=== PATIENT | female | born 1990 | race Caucasian/White ===

== ENCOUNTER 2017-10-15 18:15 | Inpatient (IN) | payer OTHER ==
[~2017-10-15] VITALS: Ht 167.6 cm; Wt 75.7 kg
[~2017-10-15 18:15] MED LIST: PREN1TAB22 PO
[2017-10-15] MEDS ORDERED: RINGERS SOLUTION,LACTATED 1,000 ML IV PRN (18:20)
[2017-10-15] MEDS ORDERED: METOCLOPRAMIDE HCL 5 MG/ML 2 ML VIAL IVP PRN (18:30)
[2017-10-15] MEDS ORDERED: CITRIC ACID/SODIUM CITRATE 30 ML SOLUTION UDCUP PO PRN (18:30)
[2017-10-15 18:59] LABS: BASOPHILS % (AUTO) 0.5 % (0.0-2.0); EOSINOPHILS % (AUTO) 0.6 % (1.0-6.0); HEMOGLOBIN 11.7 g/dL (12.0-16.0); LYMPHOCYTES # (AUTO) 2.2 K/uL (1.0-4.8); MEAN CORPUSCULAR HEMOGLOBIN 30.1 pg (26.0-34.0); MEAN CORPUSCULAR HGB CONC 34.5 G/dL (31.0-37.0); MEAN CORPUSCULAR VOLUME 87 fL (80-100); MONOCYTES # (AUTO) 0.8 K/uL (0.1-1.0); MONOCYTES % (AUTO) 5.3 % (2.0-9.0); NEUTROPHILS # (AUTO) 11.5 K/uL (1.8-7.7); NEUTROPHILS % (AUTO) 78.6 % (40.0-70.0); PLATELET COUNT (AUTO) 159 K/uL (150-450); RED CELL DISTRIBUTION WIDTH 14.5 % (11.5-14.5)
[2017-10-15] MEDS ORDERED: DINOPROSTONE 10 MG VAGINAL SUPPOSITORY VG ONE (19:00)
[2017-10-15 19:05] VITALS: BP 121/61
[2017-10-15] MEDS: RINGERS SOLUTION,LACTATED 1,000 ML IV SCH (20:07)
[2017-10-15] MEDS: OXYGEN THERAPY IH SCH (21:44)
[2017-10-16] MEDS: RINGERS SOLUTION,LACTATED 1,000 ML IV SCH ×2 (03:42→09:54)
[2017-10-16] MEDS ORDERED: OXYTOCIN 30 UNITS/LACT RINGERS 500 ML IV PRN (08:12)
[2017-10-16] MEDS: FentaNYL CITRATE-PF 100 MCG/2 ML VIAL IVP PRN ×4 (08:39→09:47)
[2017-10-16] MEDS: OXYGEN THERAPY IH SCH ×2 (08:42→20:03)
[2017-10-16] MEDS ORDERED: LIDOCAINE HCL/PF 2% 5 ML VIAL ONE (09:54)
[2017-10-16] MEDS ORDERED: ROPIVACAINE HCL/PF 0.2% 100 ML ED PRN (10:25)
[2017-10-16] MEDS ORDERED: DiphenhydrAMINE HCL 50 MG/ML VIAL IVP PRN (10:30)
[2017-10-16] MEDS ORDERED: ONDANSETRON HCL 4 MG/2 ML VIAL IVP PRN (10:30)
[2017-10-16] MEDS ORDERED: NALBUPHINE HCL 10 MG/ML VIAL IVP PRN (10:30)
[2017-10-16] MEDS ORDERED: OXYTOCIN 30 UNITS/LACT RINGERS 500 ML IV ONE (11:50)
[2017-10-16] MEDS ORDERED: OxyCODONE HCL/ACETAMINOPHEN 5-325 MG TABLET PO PRN ×2 (12:00)
[2017-10-16] MEDS ORDERED: LIDOCAINE HCL/PF 1% 30 ML VIAL INJ PRN (12:00)
[2017-10-16] MEDS ORDERED: BENZOCAINE 20%/MENTHOL 56 GM SPRAY CANISTER TP PRN (12:00)
[2017-10-16] MEDS ORDERED: GLYCERIN/WITCH HAZEL LEAF 40 PADS JAR TP PRN (12:00)
[2017-10-16] MEDS ORDERED: LANOLIN 7 GM OINTMENT TP PRN (12:00)
[2017-10-16] MEDS: IBUPROFEN 800 MG TABLET PO PRN (16:29)
[2017-10-16] MEDS: MAGNESIUM HYDROXIDE SUSPENSION 30 ML UDCUP PO PRN (21:12)
[2017-10-17] MEDS: IBUPROFEN 800 MG TABLET PO PRN (04:37)
[2017-10-17 06:37] LABS: BASOPHILS % (AUTO) 0.1 % (0.0-2.0); EOSINOPHILS % (AUTO) 0.6 % (1.0-6.0); HEMATOCRIT 29.4 % (36-46); HEMOGLOBIN 10.6 g/dL (12.0-16.0); LYMPHOCYTES # (AUTO) 1.9 K/uL (1.0-4.8); LYMPHOCYTES % (AUTO) 14.5 % (22.0-44.0); MEAN CORPUSCULAR HEMOGLOBIN 31.3 pg (26.0-34.0); MEAN CORPUSCULAR HGB CONC 35.9 G/dL (31.0-37.0); MEAN CORPUSCULAR VOLUME 87 fL (80-100); MONOCYTES # (AUTO) 0.9 K/uL (0.1-1.0); MONOCYTES % (AUTO) 6.6 % (2.0-9.0); NEUTROPHILS # (AUTO) 10.1 K/uL (1.8-7.7); NEUTROPHILS % (AUTO) 78.2 % (40.0-70.0); PLATELET COUNT (AUTO)-OB 130 K/uL (150-450); RED BLOOD CELL COUNT(AUTO) 3.38 MIL/uL (4.00-5.20); RED CELL DISTRIBUTION WIDTH 14.2 % (11.5-14.5)
[2017-10-17] MEDS: MAGNESIUM HYDROXIDE SUSPENSION 30 ML UDCUP PO PRN (09:01)
== END 2017-10-17 12:55 | disposition home or self-care (01) | DRG 560 ==
LOC: 4S 18:15 → OBSVTOIN 18:15
PROVIDERS: ADMIT Obstetrics & Gynecology; ATTEND Obstetrics & Gynecology
PROC: 10E0XZZ Delivery of Products of Conception, External Approach (ICD-10-PCS; principal; 2017-10-16)
PROC: 3E0R3BZ Introduction of Anesthetic Agent into Spinal Canal, Percutaneous Approach (ICD-10-PCS; 2017-10-16)
PROC: 00HU33Z Insertion of Infusion Device into Spinal Canal, Percutaneous Approach (ICD-10-PCS; 2017-10-16)
DX: O69.81X0 Labor and delivery complicated by cord around neck, without compression, not applicable or unspecified (principal); Z37.0 Single live birth; Z3A.39 39 weeks gestation of pregnancy
CPT/HCPCS: J3010; J3490; J7120